=== PATIENT | female | born 1970 | race African-American/Black ===

== ENCOUNTER 2016-08-07 09:31 | Day surgery (SDC) | payer BC ==
[~2016-08-07] VITALS: Ht 165.1 cm; Wt 108.0 kg
[2016-08-07] VITALS (8 sets, daily range): BP systolic 113–142; BP diastolic 60–84
[~2016-08-07 09:31] MED LIST: ADVIL200 MG PO; CITALOPRAM HBR20 MG PO; ERGOCALCIF50000 UNIT PO; FIORICET 50-301 EACH PO; HYDROCODON-ACE1 EAC7 PO; METFORMIN HCL500 MG PO; OMEPRAZOLE20 MG PO; PHENTERMINE HCL30 MG PO; TRAMADOL HCL50 MG PO; TYLENOL PM; ZOFRAN ODT4 MG PO
[2016-08-07 10:15] LABS: EOSINOPHIL (%) 6.2 % (0-5); EOSINOPHIL COUNT 0.3 K/uL (0-0.3); HEMATOCRIT 39.9 % (36.0-46.0); IMMATURE GRANULOCYTE (%) 0.2 % (0.0-0.7); IMMATURE GRANULOCYTE COUNT 0.1 K/uL; LYMPHOCYTE COUNT 2.4 K/uL (1.0-2.8); MCHC 32.1 G/DL (30.0-36.0); MCV 81.1 FL (83-99); MEAN PLAT.VOLUME 10.3 uM^3 (9.5-12.4); MONOCYTE (%) 6.8 % (3-12); MONOCYTE COUNT 0.3 K/uL (0-0.8); NEUTROPHIL (%) 36.9 % (45-76); NEUTROPHIL COUNT 1.8 K/uL (1.8-6.4); PLATELET COUNT 284 K/uL (156-360); RBC DIS.WIDTH-CV 13.9 % (11.8-14.6); RBC DIS.WIDTH-SD 40.6 % (39-53); RED BLOOD COUNT 4.92 M/uL (3.80-5.20); WHITE BLOOD COUNT 4.8 K/uL (4.1-10.2)
[2016-08-07 10:22] LABS: CHLORIDE 110 mEq/L (99-109); POTASSIUM 3.9 mEq/L (3.7-5.4); SODIUM 141 mEq/L (136-147)
[2016-08-07 10:23] LABS: INTER. NORMALIZED RATIO 1.1; PROTHROMBIN TIME 10.9 (9.2-11.2)
[2016-08-07 10:25] LABS: GLUCOSE 101 mg/dL (70-99)
[2016-08-07 10:26] LABS: ANION GAP 10 MEQ/L (2-14)
[2016-08-07 10:27] LABS: TOTAL BILIRUBIN 0.4 mg/dL (0.0-1.0)
[2016-08-07 10:28] LABS: ALKALINE PHOSPHATASE 85 IU/L (3-129); GFR ESTIMATE (CALCULATED) > 59 mL/min/
[2016-08-07 10:29] LABS: UREA NITROGEN (BUN) 13 mg/dL (9-23)
[2016-08-07] MEDS ORDERED: COLACE100 MG PO (13:49)
[2016-08-07] MEDS ORDERED: NORCO 5/3251 TABLET PO (13:49)
[2016-08-07 15:38] LABS: POINT-OF-CARE METER ID UU13113675
[2016-08-08 03:30] VITALS: BP 120/69
[2016-08-08 07:35] VITALS: BP 119/75
[2016-08-08 09:00] VITALS: BP 119/75
== END 2016-08-08 13:56 | disposition home or self-care (01) ==
LOC: SDC 09:31 → 2SOUTH 13:27 → 2EAST 13:27 → 2SOUTH 13:27 → SDC 15:52 → 2EAST 22:03
PROVIDERS: Thoracic Surgery (Cardiothoracic Vascular Surgery)
DX: K43.9 Ventral hernia without obstruction or gangrene (principal); K43.2 Incisional hernia without obstruction or gangrene; E11.9 Type 2 diabetes mellitus without complications; K21.9 Gastro-esophageal reflux disease without esophagitis; Z79.899 Other long term (current) drug therapy
CPT/HCPCS: 80053; 82948; 85025; 85610; 88302; 93005; C1781; G0378; J0690; J0696; J1100; J1170; J1644; J1885; J2250; J2405; J3010; J7050; J7120